=== PATIENT | female | born 1995 | race Caucasian/White ===

== ENCOUNTER 2018-07-06 19:28 | Emergency (ER) | payer OTHER, MEDICAID ==
[2018-07-06] MEDS: DIPHENHYDRAMINE 50 MG INJ IM (20:36)
== END 2018-07-06 20:55 | disposition home or self-care (01) ==
LOC: FTE 20:55
DX: S40.861A Insect bite (nonvenomous) of right upper arm, initial encounter (principal); S70.361A Insect bite (nonvenomous), right thigh, initial encounter; W57.XXXA Bitten or stung by nonvenomous insect and other nonvenomous arthropods, initial encounter; Y92.9 Unspecified place or not applicable
CPT/HCPCS: 96372; 99284-25